=== PATIENT | female | born 1995 | race Caucasian/White ===

== ENCOUNTER 2018-04-04 07:18 | Emergency (ER) | payer BC ==
[~2018-04-04] VITALS: Ht 157.5 cm; Wt 106.6 kg
[2018-04-04 07:26] VITALS: BP 112/51; Ht 157.5 cm; Wt 106.6 kg
== END 2018-04-04 07:44 | disposition home or self-care (01) ==
LOC: ED 07:18
DX: N61.0 Mastitis without abscess (principal)